=== PATIENT | female | born 1940 | race Two or more races ===

== ENCOUNTER 2023-09-05 16:35 | Emergency (ER) | payer SELFPAY ==
[~2023-09-05] VITALS: Ht 154.9 cm; Wt 100.0 kg
[2023-09-05 18:22] LABS: Basophils # (auto) 0 10 ^3/uL (0-0.2); Basophils % (auto) 0.3 % (0.0-2.0); Eosinophils # (auto) 0.1 10 ^3/uL (0-0.8); Hematocrit 39.2 % (36.0-46.0); Hemoglobin 13.1 g/dL (12.2-16.2); Lymphocytes # (auto) 0.7 10 ^3/uL (0.4-5.4); Lymphocytes % (auto) 7.3 % (10.0-50.0); Mean Corpuscular Hemoglobin 30.1 pg (28.0-32.0); Mean Corpuscular Hgb Conc. 33.4 g/dL (32.0-36.0); Mean Corpuscular Volume 90.1 fL (80.0-100.0); Monocytes # (auto) 0.6 10 ^3/uL (0-1.3); Monocytes % (auto) 6.6 % (0.0-12.0); Neutrophils # (auto) 7.6 10 ^3/uL (1.6-8.6); Neutrophils % (auto) 84.8 % (37.0-80.0); Nucleated Red Blood Cells % 0.1 %; Red Blood Cells 4.35 10^6/uL (4.0-5.20); Red Cell Distribution Width 13.8 % (11.8-14.3); White Blood Cell 8.9 10^3/uL (4.4-10.8)
[2023-09-05 18:34] LABS: Alanine Aminotransferase 48 U/L (7-40); Alkaline Phosphatase 169 U/L (46-116); Anion Gap 6 (5-15); Aspartate Aminotransferase 37 U/L (13-40); BUN/Creatinine Ratio 28.7 (10.0-20.0); Blood Urea Nitrogen 37 mg/dL (9-23); Calcium 10.2 mg/dL (8.5-10.1); Carbon Dioxide 31 mmol/L (20-30); Chloride 104 mmol/L (98-107); Glucose 124 mg/dL (74-106); Sodium 141 mmol/L (136-145)
[2023-09-05 18:35] LABS: Albumin 4.2 g/dL (3.2-4.8); Bilirubin, Total 0.6 mg/dL (0.2-1.0); Total Protein 7.1 g/dL (5.7-8.2)
[2023-09-05] MEDS: ONDANSETRON HCL 4 MG/2 ML VIAL IV ONE (19:06)
[2023-09-05] MEDS: MORPHINE SULFATE INJ 2 MG/ml SYRG IV ONE (19:08)
[2023-09-05 19:10] VITALS: PULSE 78; RESP 17; O2SAT 95
[2023-09-05 19:26] LABS: Urine Bacteria MANY /hpf (None Seen); Urine Blood Negative /uL (Negative); Urine Clarity Turbid (Clear); Urine Color Yellow (Yellow); Urine Mucus FEW (None Seen); Urine Protein, UAD TRACE (Negative); Urine Specific Gravity 1.023 (1.001-1.035); Urine Urobilinogen Normal (Negative); Urine WBC 23 /hpf (0 - 5); Urine pH 5.5 (5.0-9.0)
[2023-09-05] MEDS: cefTRIAXone 2GM/50ML D5W 50 ML IV ONE (21:25)
[2023-09-05] MEDS: levETIRAcetam 1000 mg/100ml 100 ML IV ONE (21:28)
[2023-09-05 21:40] VITALS: PULSE 75; RESP 15; O2SAT 98
[2023-09-05] MEDS: POTASSIUM CHL 20MEQ/100ML 100 ML IV SCH (21:52)
[2023-09-05 23:00] VITALS: BP 114/66; PULSE 83; RESP 16; TEMP 98.5; O2SAT 96
== END 2023-09-05 23:15 | disposition short-term general hospital (02) ==
LOC: ER 16:35 → EDBD 16:35 → ER 23:15
DX: S06.5X0A Traumatic subdural hemorrhage without loss of consciousness, initial encounter (principal); R41.82 Altered mental status, unspecified; R41.0 Disorientation, unspecified; R07.89 Other chest pain; W18.39XA Other fall on same level, initial encounter; Y93.89 Activity, other specified; Y92.89 Other specified places as the place of occurrence of the external cause; Y99.8 Other external cause status
CPT/HCPCS: 36415; 70450; 71250; 72125; 73552; 73562; 73630; 74176; 80053; 81001; 83605; 83880; 84484; 85025; 87040; 93005; 96365; 96368; 96375; 99285; J0696; J1953; J2270; J2405; J3480; 87077; 87186